=== PATIENT | male | born 2000 | race Caucasian/White ===

== ENCOUNTER 2024-07-23 17:22 | Emergency (ER) | payer OTHER ==
[~2024-07-23] VITALS: Ht 182.9 cm; Wt 125.8 kg
[2024-07-23 17:50] VITALS: BP 172/98; PULSE 104; RESP 18; TEMP 98.2; O2SAT 97
[2024-07-23] MEDS: NACL 0.9% 1,000 ML IV ONE (18:52)
[2024-07-23 19:13] LABS: ANION GAP 11.3 (8-16); CARBON DIOXIDE 29.8 mmol/L (21-32); CREATININE 0.9 mg/dL (0.6-1.3); POTASSIUM 4.1 mmol/L (3.5-5.1)
[2024-07-23 19:26] LABS: BASOPHILS # (AUTO) 0.1 K/uL (0.00-0.22); BASOPHILS % (AUTO) 0.4 % (0.0-2.0); EOSINOPHILS # (AUTO) 0.4 K/uL (0-0.4); EOSINOPHILS % (AUTO) 2.8 % (0.0-4.0); HEMATOCRIT 46.2 % (36-52); HEMOGLOBIN 15.7 g/dL (12.0-18.0); LYMPHOCYTES # (AUTO) 2.6 K/uL (2.0-11.5); LYMPHOCYTES % (AUTO) 16.7 % (20.5-51.1); MEAN CORPUSCULAR HEMOGLOBIN 31 pg (27-31); MEAN CORPUSCULAR HGB CONC 34 g/dL (33-37); MEAN CORPUSCULAR VOLUME 91.6 fL (80-94); MONOCYTES # (AUTO) 1.1 K/uL (0.8-1.0); MONOCYTES % (AUTO) 6.8 % (1.7-9.3); NEUTROPHILS # (AUTO) 11.5 K/uL (1.8-7.7); NEUTROPHILS % (AUTO) 73.3 % (42.2-75.2); PLATELET COUNT (AUTO) 237 K/uL (140-450); RED BLOOD CELL COUNT(AUTO) 5.04 MIL/uL (4.20-6.10); RED CELL DISTRIBUTION WIDTH 13.4 % (11.6-13.7); WHITE BLOOD COUNT (AUTO) 15.7 K/uL (4.8-10.8)
[2024-07-23 19:58] VITALS: O2SAT 97
[2024-07-23] MEDS ORDERED: CYCL-711 PO (20:06)
[2024-07-23] MEDS ORDERED: ACET500T99 PO (20:06)
[2024-07-23 21:03] VITALS: BP 148/86; PULSE 89; RESP 18; TEMP 98.2; O2SAT 97
== END 2024-07-23 21:05 | disposition home or self-care (01) ==
LOC: MED 17:22
DX: S93.401A Sprain of unspecified ligament of right ankle, initial encounter (principal); S20.212A Contusion of left front wall of thorax, initial encounter; S30.1XXA Contusion of abdominal wall, initial encounter; S60.812A Abrasion of left wrist, initial encounter; Z79.899 Other long term (current) drug therapy; Z88.0 Allergy status to penicillin; V49.9XXA Car occupant (driver) (passenger) injured in unspecified traffic accident, initial encounter; Y93.89 Activity, other specified; Y92.89 Other specified places as the place of occurrence of the external cause; Y99.8 Other external cause status
CPT/HCPCS: 36415; 70450; 71260; 73600; 74177; 80048; 85025; 90471; 90715; 96360; 99285; J7030; Q0092; Q9967